=== PATIENT | male | born 1985 | race Caucasian/White ===

== ENCOUNTER 2019-10-26 17:00 | Emergency (ER) | payer OTHER ==
[~2019-10-26] VITALS: Ht 177.8 cm; Wt 90.7 kg
[2019-10-26] MEDS ORDERED: VIREAD150 MG (17:31)
== END 2019-10-26 21:49 | disposition home or self-care (01) ==
LOC: ER 17:00
DX: R06.02 Shortness of breath (principal); R50.9 Fever, unspecified; B34.9 Viral infection, unspecified; Z20.828 Contact with and (suspected) exposure to other viral communicable diseases

== ENCOUNTER 2021-11-26 09:55 | Inpatient (IN) | payer OTHER ==
[~2021-11-26] VITALS: Ht 177.8 cm; Wt 90.7 kg
[~2021-11-26 09:55] MED LIST: VIREAD150 MG
[2021-11-26] MEDS ORDERED: TRIUMEQ TABLET1 EACH PO (10:21)
== END 2021-11-29 17:59 | disposition home or self-care (01) | DRG 603 ==
LOC: ER 09:55 → MEDJ 20:34 → SEC-K 20:34 → MEDJ 11-27 09:22
PROVIDERS: ADMIT Internal Medicine; ATTEND Internal Medicine
DX: L03.313 Cellulitis of chest wall (principal); B20 Human immunodeficiency virus [HIV] disease; L02.213 Cutaneous abscess of chest wall; D72.829 Elevated white blood cell count, unspecified; B95.61 Methicillin susceptible Staphylococcus aureus infection as the cause of diseases classified elsewhere; I10 Essential (primary) hypertension; L53.9 Erythematous condition, unspecified; L98.419 Non-pressure chronic ulcer of buttock with unspecified severity; Z87.891 Personal history of nicotine dependence; F12.90 Cannabis use, unspecified, uncomplicated

== ENCOUNTER 2022-04-21 10:13 | Emergency (ER) | payer OTHER ==
[~2022-04-21] VITALS: Ht 170.2 cm; Wt 88.9 kg
[~2022-04-21 10:13] MED LIST changes: +TRIUMEQ TABLET1 EACH PO
[2022-04-21] MEDS ORDERED: DICLOFENAC SODI75 MG PO (18:26)
== END 2022-04-21 18:47 | disposition home or self-care (01) ==
LOC: ER 10:13
DX: R10.9 Unspecified abdominal pain (principal)

== ENCOUNTER 2023-10-03 12:44 | Emergency (ER) | payer OTHER ==
[~2023-10-03] VITALS: Ht 182.9 cm; Wt 83.9 kg
[~2023-10-03 12:44] MED LIST changes: +DICLOFENAC SODI75 MG PO
[2023-10-03] MEDS ORDERED: FAMOTIDINE/PF 20 MG/2 ML VIAL ONE (13:35)
[2023-10-03] MEDS ORDERED: 0.9 % SODIUM CHLORIDE 1,000 ML IV ONE (13:45)
[2023-10-03] MEDS ORDERED: FAMOtidine 10 MG/ML (4ML VIAL) IV ONE (13:45)
[2023-10-03 14:26] LABS: HEMATOCRIT 45.9 % (39.0-48.0); HEMOGLOBIN 15.7 g/dL (13-16.00); MEAN CELL VOLUME 94.7 fL (80.0-100.00); MEAN CORPUSCULAR HEMOGLOBIN 32.4 pg (27.00-32.0); MEAN CORPUSCULAR HGB CONC 34.3 g/dl (32.0-36.0); PLATELET COUNT 458 K/uL (150-450); RED BLOOD COUNT 4.85 M/uL (4.00-6.00); RED CELL DISTRIBUTION WIDTH 13.3 % (11.5-14.5)
[2023-10-03 14:45] LABS: ALBUMIN 4.9 gm/dL (3.4-5.0); BILIRUBIN TOTAL 1.12 mg/dL (0.3-1.2); CALCIUM 10.2 mg/dL (8.5-10.1); CREATININE SERUM 1.38 mg/dL (0.70-1.30); GFR 57.66; GLOBULINA 4.4 G/DL (2.4-3.5); POTASSIUM 3.42 mEq/L (3.5-5.1); TOTAL PROTEIN 9.3 gm/dL (6.4-8.2)
[2023-10-03 16:26] LABS: URINE APPEARANCE Clear; URINE BILIRRUBIN Negative (NEGATIVE); URINE BLOOD Moderate; URINE COLOR Dark Yellow; URINE GLUCOSE Negative (NEGATIVE); URINE LEUKOCYTE Negative; URINE NITRATE Negative; URINE PROTEIN 30 (NEGATIVE)
[2023-10-03 16:30] LABS: URINE BACTERIA 27.7 uL (0.0-1933); URINE CAST 3.96 uL (0.0-1.40); URINE EPITHELIAL CELLS 8.6 uL (0.0-38.8); URINE RBC 113.1 uL (0.0-20.8)
[2023-10-03 16:38] LABS: COCAINE NEGATIVE (NEGATIVE); METHADONE NEGATIVE (NEGATIVE); OPIATES NEGATIVE (NEGATIVE); THC ( Cannabinoids) POSITIVE (NEGATIVE)
[2023-10-03 17:46] LABS: URINE KETONE 40 (NEGATIVE)
[2023-10-03 17:52] LABS: URINE SPERM FEW
== END 2023-10-03 17:21 | disposition home or self-care (01) ==
LOC: ER 12:45
PROVIDERS: General Practice
DX: T50.995A Adverse effect of other drugs, medicaments and biological substances, initial encounter (principal); B20 Human immunodeficiency virus [HIV] disease; F90.8 Attention-deficit hyperactivity disorder, other type; F84.0 Autistic disorder

== ENCOUNTER → 2024-03-15 | Emergency (ER) | payer OTHER ==
[~2024-03-15] VITALS: Ht 190.5 cm; Wt 81.6 kg
[~2024-03-15] MED LIST changes: +BACLOFEN10 MG PO; +DEXAMETHASONE SODIUM PHOSPHATE 4 MG/ML VIAL IM ONE; +DEXAMETHASONE SODIUM PHOSPHATE 4 MG/ML VIAL ONE; +KETOROLAC TROMETHAMINE 60 MG VIAL IM ONE; +ORPHENADRINE CITRATE 30 MG/ML AMPUL IM ONE; +ORPHENADRINE CITRATE 30 MG/ML AMPUL ONE
== END | disposition home or self-care (01) ==
LOC: ER 20:00
DX: M54.50 Low back pain, unspecified (principal); B20 Human immunodeficiency virus [HIV] disease